=== PATIENT | female | born 1985 | race American Indian/Alaskan Native ===

== ENCOUNTER 2016-11-21 06:04 | Day surgery (SDC) | payer MEDICAID ==
--- NOTE | 2016-11-20 17:32 | Short Stay Summary ---
Short Stay Documentation Date of service: 11/21/16 Narrative H&P: 31y/o with a recurrent right bartholin cyst. She recently underwent I&D of the mass with a recurrence. She has been symptomatic for the last 2 years. Each incision and drainage results in a reoccurrence. She denies any fever or chills. No purulent discharge. Patient has been reassessed/reevaluated/re-examined. H&P has been reviewed. No interval changes. - History Principal diagnosis: Bartholin cyst H&P: obtained from office Past Medical History: other (bartholin cyst) Past Surgical History: appendectomy, Social history: - Allergies and Medications Current Medications: Allergies No Known Allergies Allergy (Verified 11/19/16 11:52) Home Medications Medication Instructions Recorded Confirmed Last Taken Type No Known Home Medications [No 11/19/16 11/19/16 Unknown History Reported Home Medications] - Physical exam General appearance: no acute distress Integumentary: no rash HEENT: Atraumatic Lungs: Clear to auscultation Breasts: deferred Heart: Regular rate Gastrointestinal: normal Female Genitourinary: other (4-5 cm right bartholin cyst) - Brief post op/procedure progress note Date of procedure: 11/21/16 Pre-op diagnosis: Bilateral Bartholin cysts Post-op diagnosis: same Procedure: Excision of bilateral Bartholin cysts Anesthesia: VENUSA Surgeon: CLIVE PARHAM Estimated blood loss: other (500ml) Pathology: list (Bartholin cyst wall; skin right labia majora) Specimen disposition: to lab Condition: stable - Hospital course Hospital course: The patient was admitted the day of surgery and underwent excision of bilateral Bartholin cyst. Please see operative note for details of surgery. Postoperative course was uneventful. - Disposition Condition at discharge: Good Disposition: DISCHARGED TO HOME OR SELFCARE Short Stay Discharge Plan Activity: other (pelvic rest for 4-6 weeks) Diet: regular Additional Instructions: Follow-up with Dr. Perez in 1 week Prescriptions: Cephalexin [Keflex] 500 mg PO Q12HR #14 cap Ibuprofen [Motrin] 800 mg PO Q8HR PRN #60 tablet PRN Reason: Pain oxyCODONE /ACETAMINOPHEN [Percocet 5/325] 1 tab PO Q6HR PRN #30 tablet PRN Reason: Pain
[~2016-11-21 06:04] MED LIST: ANCEF/STERILE WATER 2 GM/20 ML 2 GM/20 ML SYRINGE IV NR
[2016-11-21] MEDS ORDERED: NACL BACTERIOSTATIC INFILTRATI ONE (06:19)
[2016-11-21] MEDS ORDERED: ZOFRAN IV PRN (06:43)
[2016-11-21] MEDS ORDERED: NORCO 5/325 PO PRN (06:43)
--- NOTE | 2016-11-21 06:43 | Anesthesia Day of Surgery ---
Anesthesia Day of Surgery - Day of Surgery Patient Examined: Yes Patient H&P Reviewed: Yes Patient is NPO: Yes
--- NOTE | 2016-11-21 06:43 | Anesthesia Consultation ---
Anesthesia Consult and Med Hx Date of service: 11/21/16 - Airway Anesthetic Teeth Evaluation: Good ROM Head & Neck: Adequate Mental/Hyoid Distance: Adequate Mallampati Class: Class II Intubation Access Assessment: Probably Good - Pulmonary Exam CTA: Yes - Cardiac Exam Cardiac Exam: RRR - Pre-Operative Health Status ASA Pre-Surgery Classification: ASA2 Proposed Anesthetic Plan: General - Central Nervous System Hx Psychiatric Problems: No - Other Systems Hx Alcohol Use: Yes (occas) Hx Substance Use: Yes (marijuana used daily; Ecstasy used occas) Hx Cancer: No
[2016-11-21] MEDS ORDERED: SUBLIMAZE ONE (06:59)
[2016-11-21] MEDS ORDERED: PEPCID PO NR (07:00)
[2016-11-21] MEDS ORDERED: MARCAINE-EPI 0.5%-1:200,000 INFILTRATI ONE (07:00)
[2016-11-21] MEDS ORDERED: ZOFRAN IV NR (07:00)
[2016-11-21] MEDS ORDERED: LACTATED RINGERS 1,000 ML IV SCH (07:00)
[2016-11-21] MEDS ORDERED: VERSED IV NR (07:00)
[2016-11-21] MEDS ORDERED: XYLOCAINE MPF 2% ONE (07:07)
[2016-11-21] MEDS ORDERED: DIPRIVAN 10 MG/ML IV ONE (07:07)
[2016-11-21] MEDS ORDERED: DILAUDID ONE (07:07)
[2016-11-21] MEDS ORDERED: XYLOCAINE 1%/ EPI 1:100,000 INFILTRATI ONE ×3 (07:24→07:38)
[2016-11-21] MEDS ORDERED: XYLOCAINE 2% INFILTRATI ONE (07:33)
--- NOTE | 2016-11-21 08:58 | Operative Report ---
Operative Report Operative Report: Date of procedure: 11/21/2016 Pre-operative diagnosis: Bilateral Bartholin cysts Post-operative diagnosis: Same as above Procedure name(s): Excision of Bartholin cysts Surgeon: Hannah Pike M.D. Pathology: Right and left Bartholin cyst nye; right labial majora Estimated blood loss: 500ml Anesthesia: LMA Findings 5-6 cm right Bartholin cyst; 2 cm left Bartholin cyst with multiple loculations Indication: 31y/o 012 with a history of recurrent Bartholin cysts. The patient has undergone multiple incision and drainage of the lesion with recurrence. She had elected to undergo definitive surgical management. Procedure The patient was taken to the operating room and given LMA as anesthesia. She was prepped and draped in a normal sterile fashion. Gen. survey and evaluation revealed an enlarged right Bartholin's cyst. The patient also had evidence of a smaller left Bartholin cyst. The cyst was then injected with lidocaine with epinephrine. This was performed on the contralateral side as well. A linear incision was made with the scalpel and the vaginal mucosa over the right cyst. Sharp dissection had to be performed in order to release the Bartholin cyst from the surrounding connective tissue. The skin edges were grasped with [place] clamps. An incidental cystotomy was performed with evidence of a clear mucus material. The cyst was densely adherent to the surrounding structures. Extensive lysis of adhesions had to be performed. After removal of the cyst wall was noted that there was a large amount of redundant labial tissue remaining. Excision of the excessive tissue had to be performed with the scalpel. The skin edges were then reapproximated with 3-0 Vicryl in a running fashion. Attention was then turned to the patient's left side. The left Bartholin cyst was noted initially to be small however upon excision it was noted to be multiloculated. 2 more additional containing cyst were removed during the excision. There is noted to be aggressive bleeding coming from the left labial area. [id number] stitches had to be placed and also Surgicel and noted to maintain hemostasis. Once the bleeding was contained the skin edges were then reapproximated with 3-0 Vicryl in a running fashion. The patient was then successfully extubated and taken to the recovery room in stable condition. All sponge laps and needle counts correct 2.
[2016-11-21] MEDS ORDERED: NORCO 5/325 ONE (09:03)
[2016-11-21] MEDS: DILAUDID IV PRN ×2 (09:11→09:20)
--- NOTE | 2016-11-21 09:17 | Post Anesthesia Evaluation ---
- Post Anesthesia Evaluation Patient Participated: Yes Airway Patent: Yes Stable Respiratory Function: Yes Temp > 96.8F: Yes Pain Manageable: Yes Adequeate Hydration: Yes Anesthesia Complications: No Block Receding Appropriately: Not Applicable
[2016-11-21 10:39] VITALS: BP 121/68
== END 2016-11-21 10:53 | disposition home or self-care (01) ==
LOC: OR 06:04
PROVIDERS: ATTEND Obstetrics & Gynecology
DX: N75.0 Cyst of Bartholin's gland (principal); F12.90 Cannabis use, unspecified, uncomplicated; Z72.89 Other problems related to lifestyle; Z98.890 Other specified postprocedural states
CPT/HCPCS: 56740; 81025; 88304; J0690; J1170; J2250; J2405; J2704; J7120; J3010